=== PATIENT | female | born 1935 | race Caucasian/White ===

== ENCOUNTER 2017-09-02 16:49 | Outpatient (CLI) | payer MEDICARE, OTHER ==
--- NOTE | 2017-09-02 18:15 | RAD ---
LUMBAR SPINE THREE VIEWS: 09/02/17 HISTORY: 81-year-old female with low back pain and bilateral radiculopathy. Severe levoscoliosis. Bone demineralization. Severe multilevel disc osteophytosis. Moderate to sever e vertical height loss of L3 and mild vertical height loss of L4 vertebral bodies, age indeterminate . IMPRESSION: Severe levoscoliosis and spondylosis with bone demineralization. Moderate to severe vertical height loss of L3 and mild vertical height loss of L4, age indeterminate. Correlate with clinical findings. Given the radiculopathy, consider followup nonemergent MRI study f or further assessment. POS: [facility]
== END 2017-09-02 16:50 | disposition home or self-care (01) ==
LOC: SCSRAD 16:49
PROVIDERS: ATTEND Family Medicine
DX: M47.26 Other spondylosis with radiculopathy, lumbar region (principal); M41.126 Adolescent idiopathic scoliosis, lumbar region
CPT/HCPCS: 72100

== ENCOUNTER 2017-09-10 13:22 | Outpatient (CLI) | payer MEDICARE, OTHER ==
--- NOTE | 2017-09-10 15:16 | MRI ---
MRI OF THE LUMBAR SPINE WITHOUT CONTRAST: COMPARISON: Lumbar radiograph 09/02/17. HISTORY: Fall in April. Low back pain since the fall. TECHNIQUE: Multiplanar, multisequence MR images were obtained of the lumbar spine without contrast. FINDINGS: There is scoliotic curvature of the spine. There is wedge compression deformity of the L3 vertebral body with approximately 75% anterior height loss. This still demonstrates T2 signal and likely rep resents a subacute fracture. There is retropulsion of the inferior end plate of L3 in its central c anal approximately 8 mm. Generalized disk desiccation is seen. The conus medullaris terminates nor ramon at L1. There is a focus of high T2 signal in the right kidney which likely represents a cyst. 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 The other perivertebral and paraspinal soft tissues are unremarkable. T12-L1: A small generalized concentric disk bulge is seen. No posterior facet arthrosis. No neura l foraminal or central canal stenosis. L1-2: A small disk-osteophyte complex is seen. No posterior facet arthrosis. Minimal central joselo l stenosis. Mild bilateral neural foraminal stenosis. L2-3: A moderate disk-osteophyte complex is seen. No posterior facet arthrosis. Moderate central canal stenosis. Moderate right and mild left neural foraminal stenosis. L3-4: A large disk-osteophyte complex is associated with the retropulsion of the inferior end plate of L3 as mentioned above. Mild to moderate bilateral posterior facet arthrosis. Severe central ca nal stenosis. Severe right and moderate left neural foraminal stenosis. L4-5: A moderate disk-osteophyte complex is seen. Moderate bilateral posterior facet arthrosis. M oderate central canal stenosis. Mild to moderate bilateral neural foraminal stenosis. L5-S1: A small disk-osteophyte complex is seen. Severe left and moderate right posterior facet art hrosis. Mild central canal stenosis. Mild right and severe left neural foraminal stenosis. IMPRESSION: 1. Degenerative changes of the lumbar spine as above. 2. Subacute compression fracture of L3. POS: [facility]
== END 2017-09-10 13:23 | disposition home or self-care (01) ==
LOC: SCSMRI 13:22
PROVIDERS: ATTEND Family Medicine
DX: M76.31 Iliotibial band syndrome, right leg (principal); M47.816 Spondylosis without myelopathy or radiculopathy, lumbar region; M48.56XA Collapsed vertebra, not elsewhere classified, lumbar region, initial encounter for fracture
CPT/HCPCS: 72148

== ENCOUNTER 2017-09-16 10:33 | Outpatient (CLI) | payer MEDICARE, OTHER ==
--- NOTE | 2017-09-16 13:26 | MRI ---
MRI CERVICAL SPINE WITHOUT CONTRAST: HISTORY: The patient had a recent fall. Neck pain and bruising. No history of fracture. COMPARISON: None. TECHNIQUE: A cervical spine MRI is performed without contrast administration. Multisequential, multiplanar niraj ging is performed. FINDINGS: There is appropriate T1 marrow signal intensity of the cervical vertebrae. Cervical spine vertebral body height is maintained. There is no fracture. No significant STIR hyperintensity to suggest ve rtebral body edema or ligamentous injury. Exaggeration of lordosis, likely due to patient position. C2-C3: No significant disk osteophyte complex. No significant central canal stenosis. The neural foramina are patent. C3-C4: Central disk osteophyte complex abuts the thecal sac. No high grade central canal stenosis. Mild to moderate right and mild left foraminal narrowing due to degenerative change of the uncovert ebral joint. C4-C5: Central disk osteophyte complex abuts the thecal sac. No high grade central canal stenosis. Degenerative change of the bilateral uncovertebral joints results in mild bilateral foraminal narr owing. C5-C6: Broad-based disk osteophyte complex over the left periosteal component. No high grade centr al canal stenosis. Degenerative change in the bilateral uncovertebral joints results in mild to mod erate right and moderate left foraminal narrowing. C6-C7: Broad-based disk osteophyte complex abuts the thecal sac. There is mass effect upon the lef t hemicord. No significant central canal stenosis. The right neural foramen is patent. Moderate l eft foraminal narrowing due to degenerative change of the uncovertebral joint. C7-T1: No significant disk osteophyte complex. No significant central canal stenosis. The neural foramina are patent. IMPRESSION: Degenerative changes of the cervical spine as detailed above. POS: [facility]
--- NOTE | 2017-09-16 13:31 | RAD ---
CERVICAL SPINE FOUR VIEWS: History: M43.12 - Back pain. Recent fall. Bruising and neck pain. Comparison: None. FINDINGS: In the neutral position there is mildly exaggerated cervical lordosis. No acute fracture. No signifi cant translation with flexion or extension. Moderate facet arthrosis of the cervical spine. IMPRESSION: 1. No acute fracture or malalignment. 2. No abnormal translation. POS: [facility]
== END 2017-09-16 10:34 | disposition home or self-care (01) ==
LOC: SCSMRI 10:33
PROVIDERS: ATTEND Anesthesiology Pain Medicine
DX: M43.12 Spondylolisthesis, cervical region (principal); M47.12 Other spondylosis with myelopathy, cervical region; E78.2 Mixed hyperlipidemia; N39.3 Stress incontinence (female) (male); M50.31 Other cervical disc degeneration, high cervical region
CPT/HCPCS: 36415; 72050; 72141; 80053; 80061; 81001

== ENCOUNTER 2017-10-20 08:57 | Outpatient (CLI) | payer MEDICARE, OTHER ==
--- NOTE | 2017-10-20 11:15 | MRI ---
MRI LUMBAR SPINE: HISTORY: Lumbar stenosis, neurogenic claudication, M48.062. FINDINGS: Multiplanar, multisequence noncontrast-enhanced MRI images lumbar spine obtained. For the purposes of this dictation, the last freely mobile vertebral body will be considered to be th e L5 vertebral body. All other vertebral bodies are numbered according to this. T11-12 and T12-L1: Unremarkable. L1-2: There is disk desiccation. There is a broad-based disk bulge with bilateral facet and ligamen tiffany flavum hypertrophy resulting in mild central and lateral recess stenosis. L2-3: Disk desiccation is seen. There is a broad-based central disk bulge with bilateral facet and ligamentum flavum hypertrophy. This results in moderate to severe central and lateral recess stenosi s at L3-4. There is moderate bilateral neural foraminal narrowing also seen. L3: There is an old compression fracture involving the inferior aspect of the L3 vertebral body with approximately 70% height loss. There is a retropulsed fragment at the L3-4 level extending posterio rly into the spinal canal resulting in severe L3-4 central and right paracentral spinal stenosis with obliteration of the right L3-4 lateral recess and marked central and left L3-4 lateral stenosis. Th ere is severe right L3-4 and moderate left-sided L3-4 neural foraminal narrowing seen. L4-5: Disk desiccation is seen. There is a broad-based disk bulge with bilateral facet and ligament um flavum hypertrophy resulting in severe central and left L4-5 lateral recess stenosis. There is mo derate bilateral neural foraminal narrowing. There is moderate to severe left L4-5 lateral recess an d moderate right-sided lateral recess stenosis. There is moderate to severe central spinal stenosis. L5-S1: Disk desiccation is seen. There is a broad-based disk bulge with bilateral facet hypertrophy worse on the left than on the right. There is moderate to severe left-sided neural foraminal narrow ing. The right neural foramen is patent. IMPRESSION: Multilevel central and lateral recess stenosis, most significant level is L3-4. Other significant st enosis is also seen at L2-3 and L4-5. POS: [facility]
== END 2017-10-20 08:58 | disposition home or self-care (01) ==
LOC: SCSMRI 08:57
PROVIDERS: ATTEND Anesthesiology Pain Medicine
DX: M48.062 Spinal stenosis, lumbar region with neurogenic claudication (principal)
CPT/HCPCS: 72148

== ENCOUNTER 2020-12-27 12:55 | Emergency (ER) | payer MEDICARE ==
--- NOTE | 2020-12-27 13:42 | CT ---
CT BRAIN WITHOUT CONTRAST: HISTORY: Trauma, fall, headache. No loss of consciousness FINDINGS: There are changes of cortical atrophy and chronic small vessel ischemic disease. No evidence of acute infarct, hemorrhage, midline shift or abnormal extra-axial fluid collections is seen. The ventricular size is appropriate and the basilar cisterns are patent. The bony calvarium is intact. Th e mastoid air cells are well aerated. There is mucosal disease in the left maxillary sinus. IMPRESSION: No CT evidence of acute intracranial process.
--- NOTE | 2020-12-27 13:54 | RAD ---
LEFT HUMERUS 2 VIEWS HISTORY: Fall, left arm pain FINDINGS: There is a completely displaced fracture involving the midshaft of the left humerus.
[2020-12-27] MEDS ORDERED: HYDROcodone/Acetaminophen 10/325 mg Tablet ONE (14:23)
--- NOTE | 2020-12-27 14:26 | RAD ---
EXAM: LEFT SHOULDER TWO VIEWS: 12/27/20 HISTORY: Injury, trauma. FINDINGS: Very severe osteoarthrosis changes of the left glenohumeral joint with marked joint space loss and sc lerosis and eburnation and hypertrophic osteophytosis. Markedly displaced angulated and foreshortened comminuted fracture of the mid humeral diaphysis. ' No evidence for pneumothorax. No overt displaced rib fracture. IMPRESSION: Very markedly displaced, foreshortened and angulated mid humeral shaft fracture. Severe glenohumeral joint osteoarthrosis. POS: [facility]
== END 2020-12-27 14:42 | disposition home or self-care (01) ==
LOC: ERS 12:55
DX: S42.352A Displaced comminuted fracture of shaft of humerus, left arm, initial encounter for closed fracture (principal); S09.90XA Unspecified injury of head, initial encounter; E78.5 Hyperlipidemia, unspecified; W18.30XA Fall on same level, unspecified, initial encounter; Y92.512 Supermarket, store or market as the place of occurrence of the external cause
CPT/HCPCS: 70450